=== PATIENT | male | born 1985 | race Asian ===

== ENCOUNTER 2021-03-31 18:35 | Emergency (ER) | payer OTHER ==
[~2021-03-31] VITALS: Ht 185.4 cm; Wt 97.9 kg
[2021-03-31] MEDS ORDERED: BACITRACIN OINTMENT 30GM TUBE TOP ONE (20:45)
[2021-03-31 20:49] VITALS: BP 147/68
== END 2021-03-31 21:11 | disposition home or self-care (01) ==
LOC: M ED 18:35
DX: S00.81XA Abrasion of other part of head, initial encounter (principal); S00.83XA Contusion of other part of head, initial encounter; X58.XXXA Exposure to other specified factors, initial encounter; Y92.138 Other place on military base as the place of occurrence of the external cause; Y99.1 Military activity

== ENCOUNTER → 2021-11-09 | Outpatient (REF) | payer OTHER | LOC: M LAB REF 13:00 | PROVIDERS: ATTEND Otolaryngology | DX: K13.79 Other lesions of oral mucosa (principal) ==